=== PATIENT | male | born 1945 | race Caucasian/White ===

== ENCOUNTER → 2016-11-28 | Outpatient (CLI) | payer MEDICARE, BC, OTHER ==
[2016-11-28 18:35] LABS: MEAN CORPUSCULAR HEMOGLOBIN 33.2 pg (27.0-33.0); MEAN CORPUSCULAR HGB CONC 33.3 g/dl (32.0-36.5); MEAN CORPUSCULAR VOLUME 99.8 fl (80.0-96.0); WHITE BLOOD COUNT 4.7 K/mm3 (4.0-10.0)
[2016-11-28 19:37] LABS: ALBUMIN 3.8 GM/DL (3.2-5.2); ALBUMIN/GLOBULIN RATIO 1.31 (1.00-1.93); ALKALINE PHOSPHATASE 58 U/L (45-117); ALT/SGPT 19 U/L (12-78); ANION GAP 6 MEQ/L (8-16); AST/SGOT 17 U/L (15-37); BILIRUBIN,TOTAL 0.6 MG/DL (0.2-1.0); BLOOD UREA NITROGEN 12 MG/DL (7-18); CALCIUM LEVEL 8.1 MG/DL (8.8-10.2); CARBON DIOXIDE LEVEL 27 MEQ/L (21-32); CHLORIDE LEVEL 108 MEQ/L (98-107); CHOLESTEROL LEVEL 171 MG/DL (<200); CREATININE FOR GFR 1.01 MG/DL (0.70-1.30); GLOMERULAR FILTRATION RATE > 60.0 (>42); GLUCOSE, FASTING 93 MG/DL (83-110); POTASSIUM SERUM 4.3 MEQ/L (3.5-5.1); SODIUM LEVEL 141 MEQ/L (136-145); TOTAL PROTEIN 6.7 GM/DL (6.4-8.2); TRIGLYCERIDES LEVEL 46 MG/DL (<150)
== END ==
LOC: M WUC 10:18
PROVIDERS: ATTEND Family Medicine
DX: E78.5 Hyperlipidemia, unspecified (principal)

== ENCOUNTER → 2017-06-08 | Outpatient (REF) | payer MEDICARE, OTHER ==
[2017-06-08 18:00] LABS: ALBUMIN/GLOBULIN RATIO 1.33 (1.00-1.93); ALKALINE PHOSPHATASE 57 U/L (45-117); ALT/SGPT 27 U/L (12-78); ANION GAP 8 MEQ/L (8-16); AST/SGOT 23 U/L (7-37); BILIRUBIN,TOTAL 0.7 MG/DL (0.2-1.0); BLOOD UREA NITROGEN 16 MG/DL (7-18); CALCIUM LEVEL 8.7 MG/DL (8.8-10.2); CARBON DIOXIDE LEVEL 29 MEQ/L (21-32); CHLORIDE LEVEL 103 MEQ/L (98-107); CREATININE FOR GFR 0.97 MG/DL (0.70-1.30); GLOMERULAR FILTRATION RATE > 60.0 (>42); GLUCOSE, FASTING 76 MG/DL (70-100); POTASSIUM SERUM 4.1 MEQ/L (3.5-5.1); SODIUM LEVEL 140 MEQ/L (136-145)
== END ==
LOC: M LABDRAW1 15:07
DX: E78.5 Hyperlipidemia, unspecified (principal)
CPT/HCPCS: 80053

== ENCOUNTER 2018-09-27 11:00 | Emergency (ER) | payer MEDICARE, BC, OTHER ==
[~2018-09-27] VITALS: Ht 165.1 cm; Wt 74.5 kg
--- NOTE | 2018-09-27 11:42 | REP ---
CT Head without contrast HISTORY: Altered mental status COMPARISON: None The patient is status post bilateral frontal parietal cranioplasty. Areas of decreased attenuation are present in the frontal lobes greater on the right than on the left. There is dilatation of the overlying cortical sulci. This represents encephalomalacia. Areas of decreased attenuation are present in the periventricular white matter. This represents small-vessel ischemic disease. There is no intraparenchymal hemorrhage, acute infarct, mass or midline shift. The ventricular system and cortical sulci are dilated consistent with mild volume loss. There is no extra cerebral collection. There is no fracture. The visualized sinuses are clear. IMPRESSION: 1. Bilateral frontal lobe encephalomalacia. 2. Small vessel ischemic disease. 3. Mild volume loss. Electronically Signed by Elgin Turcios MD 09/27/2018 11:34 A
[2018-09-27 11:53] LABS: BASO % 0.2 % (0.0-1.0); EOS % 0.1 % (0.0-3.0); HEMATOCRIT 48.9 % (42.0-52.0); HEMOGLOBIN 16.4 g/dl (13.5-17.5); LYMPH # 0.9 10^3/uL (1.5-4.5); LYMPH % 11.5 % (24.0-44.0); MEAN CORPUSCULAR HEMOGLOBIN 32.3 pg (27.0-33.0); MEAN CORPUSCULAR HGB CONC 33.5 g/dl (32.0-36.5); MEAN CORPUSCULAR VOLUME 96.3 fl (80.0-96.0); MONO # 0.7 10^3/uL (0.0-0.8); NEUTROPHILS # 6.3 10^3/uL (1.8-7.7); NEUTROPHILS % 78.5 % (36.0-66.0); PLATELET COUNT, AUTOMATED 159 10^3/uL (150-450); RED BLOOD COUNT 5.08 10^6/uL (4.30-6.10)
[2018-09-27 12:30] LABS: AMPHETAMINES LEVEL URINE NEGATIVE (NEGATIVE); BARBITURATES URINE NEGATIVE (NEGATIVE); BENZODIAZEPINES URINE NEGATIVE (NEGATIVE); CANNABINOIDS URINE NEGATIVE (NEGATIVE); COCAINE METABOLITE URINE NEGATIVE (NEGATIVE); METHADONE URINE NEGATIVE (NEGATIVE); OPIATES URINE NEGATIVE (NEGATIVE); PHENCYCLIDINE URINE NEGATIVE (NEGATIVE)
[2018-09-27] MEDS ORDERED: NAPROXEN 250 MG TAB PO ONE (12:30)
[2018-09-27 12:31] LABS: ACETAMINOPHEN LEVEL < 2.0 UG/ML (10.0-30.0); SALICYLATE LEVEL < 1.7 MG/DL (5.0-30.0)
[2018-09-27 12:32] LABS: ETHYL ALCOHOL (ETHANOL) < 0.003 % (0.000-0.010)
[2018-09-27 12:35] LABS: ALBUMIN 3.8 GM/DL (3.2-5.2); ALT/SGPT 27 U/L (12-78); BILIRUBIN,DIRECT 0.2 MG/DL (0.0-0.2); BILIRUBIN,TOTAL 0.8 MG/DL (0.2-1.0); BLOOD UREA NITROGEN 13 MG/DL (7-18); CALCIUM LEVEL 8.3 MG/DL (8.8-10.2); CARBON DIOXIDE LEVEL 28 MEQ/L (21-32); CHLORIDE LEVEL 104 MEQ/L (98-107); CPK CREATINE PHOSPHOKINASE 175 U/L (39-308); CREATININE FOR GFR 0.95 MG/DL (0.70-1.30); GLOMERULAR FILTRATION RATE > 60.0 (>42); GLUCOSE, FASTING 98 MG/DL (70-100); MB/CK RELATIVE INDEX 1.83 (< OR =4); SODIUM LEVEL 139 MEQ/L (136-145); TOTAL PROTEIN 7.4 GM/DL (6.4-8.2); TROPONIN I < 0.02 NG/ML (< 0.10)
[2018-09-27 12:52] LABS: OSMOLALITY SERUM 290 MOSM/KG (280-301)
--- NOTE | 2018-09-27 12:57 | REP ---
CT cervical spine without contrast HISTORY: Fall COMPARISON: None There is no acute fracture or subluxation. 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 There is very minimal posterior angulation of the odontoid process. A subchondral cyst is present in the C2 vertebral body. There is no subluxation. A disc bulge is present at the C3-4 level. Disc bulges with associated osteophyte formation are present at the C4-5 through C6-7 levels. There is minimal narrowing of the spinal canal. Uncinate process and/or facet hypertrophy are present at the C3-4 through C7-T1 levels. These findings produce minimal to mild narrowing of the neural foramina. The C4-5 through C7-T1 intervertebral discs are decreased in height consistent with disc degeneration. IMPRESSION: 1. There is no acute fracture or subluxation. 2. 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 There is no subluxation. 3. There is cervical spondylosis at the C3-4 through C7-T1 levels. Electronically Signed by Elgin Turcios MD 09/27/2018 12:48 P
[2018-09-27 13:28] VITALS: BP 139/71
--- NOTE | 2018-09-27 21:09 | ED PDOC ---
Post-Departure Follow-Up dr lei faxed formal areport of david orozco for fu Vinicio Swenson MD September 27, 2018 21:09
--- NOTE | 2018-09-28 11:31 | ECGEPIP ---
Stationary ECG Study [facility] - ED Test Date: 2018-09-27 Pat Name: JOSEPH OLVERA Department: Room: - Gender: M Production Associate: sunni : 1945 Requested By: Holli Gardner Order Number: [id number] Reading MD: Holli Gardner Measurements Intervals [place] Rate: 66 P: 53 DC: 157 QRS: -9 QRSD: 95 T: 92 QT: 372 QTc: 392 Interpretive Statements SINUS RHYTHM WITH OCCASIONAL VENTRICULAR PREMATURE COMPLEXES NONSPECIFIC T-WAVE ABNORMALITY NO PRIOR FOR COMPARISON Electronically Signed On 09-28-2018 11:31:30 EDT by Holli Gardner
== END 2018-09-27 14:03 | disposition home or self-care (01) ==
LOC: M ED 11:00 → EDBD 11:00 → M ED 14:03
DX: S00.03XA Contusion of scalp, initial encounter (principal); S10.83XA Contusion of other specified part of neck, initial encounter; W18.39XA Other fall on same level, initial encounter; Y92.018 Other place in single-family (private) house as the place of occurrence of the external cause
CPT/HCPCS: 36415; 70450; 72125; 80048; 80076; 80307; 82140; 82550; 82553; 83930; 84443; 84484; 85025; 93005; 93041; 94760; 97161; 99285; G0480

== ENCOUNTER → 2020-10-24 | Outpatient (CLI) | payer MEDICARE, BC, OTHER | LOC: M PLARAD 07:58 | PROVIDERS: ATTEND Orthopaedic Surgery | DX: M47.892 Other spondylosis, cervical region (principal) ==

== ENCOUNTER → 2023-01-28 | Outpatient (CLI) | payer MEDICARE, BC, OTHER ==
[~2023-01-28] MED LIST: ISOVUE-370 76% 100ML VIAL As Ordered ONE
== END ==
LOC: M RAD 16:45
PROVIDERS: ATTEND Orthopaedic Surgery
DX: M50.30 Other cervical disc degeneration, unspecified cervical region (principal); M54.2 Cervicalgia
CPT/HCPCS: 70498; Q9967

== ENCOUNTER → 2023-05-07 | Outpatient (CLI) | payer MEDICARE, BC, OTHER | LOC: M RAD 14:24 | PROVIDERS: ATTEND Family Medicine | DX: Z12.2 Encounter for screening for malignant neoplasm of respiratory organs (principal); F17.210 Nicotine dependence, cigarettes, uncomplicated ==

== ENCOUNTER 2023-10-12 16:28 | Inpatient (IN) | payer MEDICARE, BC ==
[~2023-10-12] VITALS: Ht 165.1 cm; Wt 61.8 kg
[2023-10-12 17:37] LABS: HEMATOCRIT 36.5 % (42.0-52.0); HEMOGLOBIN 12.5 g/dl (13.5-17.5); LYMPH # 0.6 10^3/uL (1.5-5.0); MEAN CORPUSCULAR HEMOGLOBIN 30.6 pg (27.0-33.0); MEAN CORPUSCULAR HGB CONC 34.2 g/dl (32.0-36.5); MEAN CORPUSCULAR VOLUME 89.5 fl (80.0-96.0); MONO # 1.7 10^3/uL (0.0-0.8); MONO % 20.1 % (2.0-8.0); NEUTROPHILS # 5.7 10^3/uL (1.5-8.5); NEUTROPHILS % 66.2 % (36.0-66.0); PLATELET COUNT, AUTOMATED 130 10^3/uL (150-450); RED BLOOD COUNT 4.08 10^6/uL (4.30-6.10); WHITE BLOOD COUNT 8.6 10^3/uL (4.0-10.0)
[2023-10-12 17:48] LABS: INR 1.22; PARTIAL THROMBOPLASTIN TIME 24.6 SECONDS (24.8-34.2)
[2023-10-12 18:03] LABS: BLOOD UREA NITROGEN 10 MG/DL (9-23); CARBON DIOXIDE LEVEL 27 MMOL/L (20-31); CHLORIDE LEVEL 101 MMOL/L (98-107); CK-MB VALUE MASS < 1.0 NG/ML (<3.6); CPK CREATINE PHOSPHOKINASE 98 U/L (46-171); CREATININE FOR GFR 0.77 MG/DL (0.70-1.30); GLOMERULAR FILTRATION RATE > 60.0 (>42); GLUCOSE, FASTING 105 MG/DL (74-106); MAGNESIUM LEVEL 1.8 MG/DL (1.8-2.4); MB/CK RELATIVE INDEX 1.02 (< OR =4); POTASSIUM SERUM 3.1 MMOL/L (3.5-5.1); SODIUM LEVEL 136 MMOL/L (136-145)
[2023-10-12 18:05] LABS: THYROID STIMULATING HORMONE 1.264 uIU/ML (0.55-4.78)
[2023-10-12 18:06] LABS: FREE T4 1.27 NG/DL (0.89-1.76)
[2023-10-12] MEDS: ACETAMINOPHEN TAB 650MG DOSE (2X325MG) PO ONE (18:24)
[2023-10-12 18:52] LABS: ERYTHROCYTE SEDIMENTATION RATE 63 mm/hr (0-20)
[2023-10-12 19:12] LABS: CK-MB VALUE MASS < 1.0 NG/ML (<3.6)
[2023-10-12 19:13] LABS: CPK CREATINE PHOSPHOKINASE 101 U/L (46-171); MB/CK RELATIVE INDEX 0.99 (< OR =4)
[2023-10-12 19:19] LABS: PROCALCITONIN 0.09 ng/ml
[2023-10-12] MEDS: POTASSIUM CHLORIDE 10MEQ SR TABLET PO ONE (20:09)
[2023-10-12 20:15] LABS: ALKALINE PHOSPHATASE 78 U/L (46-116); ALT/SGPT 23 U/L (7.0-40); AST/SGOT 15 U/L (<34); BILIRUBIN,DIRECT 0.3 MG/DL (<0.4); BILIRUBIN,TOTAL 0.6 MG/DL (0.3-1.2); TOTAL PROTEIN 6.1 G/DL (5.7-8.2)
[2023-10-12] MEDS ORDERED: ISOVUE-370 76% 100ML VIAL As Ordered ONE (21:07)
[2023-10-13] VITALS (11 sets, daily range): BP systolic 90–113; BP diastolic 54–95; TEMP 97.2–98.8; O2SAT 94–97
[2023-10-13] MEDS: AZITHROMYCIN 250MG TABLET PO ONE (00:31)
[2023-10-13] MEDS: cefTRIAXone SOD 1 GM in D5W MINI-BAG PLUS 50 ML IV ONE (00:31)
[2023-10-13] MEDS ORDERED: ACETAMINOPHEN TAB 650MG DOSE (2X325MG) PO PRN (01:00)
[2023-10-13] MEDS ORDERED: IPRATROPIUM 0.5MG/ALBUTEROL 2.5MG INH SOL UD 3ML (DUONEB) NEB PRN (01:05)
[2023-10-13] MEDS: POTASSIUM CHLORIDE 10MEQ SR TABLET PO ONE (02:01)
[2023-10-13] MEDS: KCL 20MEQ in NS 1000ML 1,000 ML IV SCH (02:02)
[2023-10-13] MEDS: guaiFENesin ER TABLET 600 MG TAB PO SCH (02:02)
[2023-10-13] MEDS ORDERED: HOME MED LIST COMPLETE! XX SCH (02:45)
[2023-10-13] MEDS ORDERED: MIRALAX *UNIT DOSE* 17GM PACKET PO PRN (03:50)
[2023-10-13] MEDS: IPRATROPIUM 0.5MG/ALBUTEROL 2.5MG INH SOL UD 3ML (DUONEB) NEB PRN (03:52)
[2023-10-13] MEDS: DOCUSATE SODIUM 100MG CAPSULE PO SCH (05:04)
[2023-10-13 06:40] LABS: BLOOD UREA NITROGEN 8 MG/DL (9-23); CALCIUM LEVEL 7.8 MG/DL (8.3-10.6); CARBON DIOXIDE LEVEL 26 MMOL/L (20-31); CHLORIDE LEVEL 104 MMOL/L (98-107); CREATININE FOR GFR 0.71 MG/DL (0.70-1.30); GLOMERULAR FILTRATION RATE > 60.0 (>42); GLUCOSE, FASTING 96 MG/DL (74-106); POTASSIUM SERUM 3.5 MMOL/L (3.5-5.1); SODIUM LEVEL 137 MMOL/L (136-145)
[2023-10-13] MEDS: ENOXAPARIN 40MG/0.4ML SYRINGE (J1650 PER 10MG) SC SCH (08:43)
[2023-10-13] MEDS: cefTRIAXone SOD 2 GM in D5W MINI-BAG PLUS 50 ML IV SCH (11:43)
[2023-10-13] MEDS: LACTOBACILLUS ACIDOPHILUS CAP (BACID) PO SCH (11:43)
[2023-10-13] MEDS: NS 500 ML IV ONE (13:44)
[2023-10-13] MEDS: MIDODRINE 5 MG TAB PO ONE (13:44)
[2023-10-13] MEDS: IPRATROPIUM 0.5MG/ALBUTEROL 2.5MG INH SOL UD 3ML (DUONEB) NEB SCH (14:31)
[2023-10-13] MEDS: AZITHROMYCIN 250MG TABLET PO SCH (20:36)
[2023-10-14] MEDS ORDERED: cefTRIAXone SOD 1 GM in D5W MINI-BAG PLUS 50 ML IV SCH
[2023-10-14] MEDS: BENZONATATE 100MG CAPSULE PO PRN (01:56)
[2023-10-14 02:00] VITALS: BP 103/60; TEMP 98.6; O2SAT 97
[2023-10-14 05:37] VITALS: BP 98/54; TEMP 98.2; O2SAT 95
[2023-10-14 06:17] LABS: HEMATOCRIT 30.8 % (42.0-52.0); MEAN CORPUSCULAR HGB CONC 33.4 g/dl (32.0-36.5); MEAN CORPUSCULAR VOLUME 89.8 fl (80.0-96.0); PLATELET COUNT, AUTOMATED 172 10^3/uL (150-450); RED BLOOD COUNT 3.43 10^6/uL (4.30-6.10)
[2023-10-14 06:18] LABS: HEMOGLOBIN 10.3 g/dl (13.5-17.5)
[2023-10-14 06:25] LABS: BLOOD UREA NITROGEN 7 MG/DL (9-23); CALCIUM LEVEL 7.6 MG/DL (8.3-10.6); CARBON DIOXIDE LEVEL 26 MMOL/L (20-31); CHLORIDE LEVEL 107 MMOL/L (98-107); CREATININE FOR GFR 0.69 MG/DL (0.70-1.30); GLOMERULAR FILTRATION RATE > 60.0 (>42); GLUCOSE, FASTING 107 MG/DL (74-106); MAGNESIUM LEVEL 1.8 MG/DL (1.8-2.4); POTASSIUM SERUM 3.3 MMOL/L (3.5-5.1); SODIUM LEVEL 140 MMOL/L (136-145)
[2023-10-14 10:00] VITALS: BP 90/60; TEMP 98.6; O2SAT 95
[2023-10-14] MEDS: MIDODRINE 5 MG TAB PO ONE (10:41)
[2023-10-14 11:30] VITALS: BP 108/62; TEMP 96.7; O2SAT 97
[2023-10-14] MEDS ORDERED: VENTAER INH (12:39)
[2023-10-14] MEDS ORDERED: MUCI1TAB16 PO (12:39)
[2023-10-14] MEDS ORDERED: AZIT-12 PO (12:39)
[2023-10-14] MEDS ORDERED: CEFD300CAP PO (12:39)
[2023-10-14] MEDS ORDERED: BACI1CAP PO (12:39)
[2023-10-14] MEDS ORDERED: SELF1KIT MC (12:41)
[2023-10-14] MEDS ORDERED: MIDO10TA PO (12:41)
[2023-10-14] MEDS: MAG SULF 1GM/100ML (MAG RUN) 1 GM in IV 1 EA IV ONE (12:54)
[2023-10-14] MEDS: POTASSIUM CHLORIDE 10MEQ SR TABLET PO ONE (12:54)
[2023-10-14 14:00] VITALS: BP 92/51; TEMP 97.9; O2SAT 96
[2023-10-15 15:09] LABS: BODY FLUID CULTURE Not indicated. (.); LEGIONELLA ANTIGEN URINE Negative (Negative); ORGANISM ID Not indicated. (.); SPECIMEN SOURCE Urine (.); URINE STREP PNEUMONIAE ANTIGEN Negative (Negative)
== END 2023-10-14 15:44 | disposition home health service (06) | DRG 871 ==
LOC: M ED 16:28 → EDBD 16:28 → M ED INP 10-13 00:56 → M MSPAV 10-13 02:57
PROVIDERS: ADMIT Preventive Medicine Undersea and Hyperbaric Medicine; ATTEND General Practice
DX: A41.9 Sepsis, unspecified organism (principal); J18.9 Pneumonia, unspecified organism; F17.200 Nicotine dependence, unspecified, uncomplicated; E87.6 Hypokalemia; K44.9 Diaphragmatic hernia without obstruction or gangrene; K57.90 Diverticulosis of intestine, part unspecified, without perforation or abscess without bleeding; M50.31 Other cervical disc degeneration, high cervical region; M50.321 Other cervical disc degeneration at C4-C5 level; M50.323 Other cervical disc degeneration at C6-C7 level; M50.33 Other cervical disc degeneration, cervicothoracic region; R26.89 Other abnormalities of gait and mobility; D64.9 Anemia, unspecified

== ENCOUNTER → 2023-11-19 | Outpatient (CLI) | payer MEDICARE, BC ==
[~2023-11-19] MED LIST changes: +AZIT-12 PO; +BACI1CAP PO; +CEFD300CAP PO; -ISOVUE-370 76% 100ML VIAL As Ordered ONE; +MIDO10TA PO; +MUCI1TAB16 PO; +SELF1KIT MC; +VENTAER INH
[2023-11-19 17:11] LABS: BASO % 0.2 % (0.0-1.0); EOS % 0.7 % (0.0-3.0); HEMOGLOBIN 12.5 g/dl (13.5-17.5); LYMPH # 1.4 10^3/uL (1.5-5.0); LYMPH % 25.2 % (24.0-44.0); MEAN CORPUSCULAR HEMOGLOBIN 30.7 pg (27.0-33.0); MEAN CORPUSCULAR HGB CONC 32.9 g/dl (32.0-36.5); MEAN CORPUSCULAR VOLUME 93.4 fl (80.0-96.0); NEUTROPHILS # 3.1 10^3/uL (1.5-8.5); NEUTROPHILS % 54.5 % (36.0-66.0); PLATELET COUNT, AUTOMATED 209 10^3/uL (150-450); RED BLOOD COUNT 4.07 10^6/uL (4.30-6.10); WHITE BLOOD COUNT 5.7 10^3/uL (4.0-10.0)
[2023-11-19 17:38] LABS: BLOOD UREA NITROGEN 13 MG/DL (9-23); CALCIUM LEVEL 8.4 MG/DL (8.3-10.6); CARBON DIOXIDE LEVEL 30 MMOL/L (20-31); CHLORIDE LEVEL 109 MMOL/L (98-107); FERRITIN 224.2 NG/ML (10.5-307.3); GLOMERULAR FILTRATION RATE > 60.0 (>42); GLUCOSE, FASTING 79 MG/DL (74-106); IRON (FE) 50 UG/DL (65-175); PERCENT SATURATION 17.1 % (19.7-50.0); POTASSIUM SERUM 3.5 MMOL/L (3.5-5.1); SODIUM LEVEL 143 MMOL/L (136-145); TOTAL IRON BINDING CAPACITY 293 UG/DL (250-425)
[2023-11-19 17:39] LABS: FOLATE 5.5 NG/ML (>5.4); VITAMIN B12 LEVEL 400 PG/ML (211-911)
== END ==
LOC: M WUC 14:06
PROVIDERS: ATTEND Family Medicine
DX: D64.9 Anemia, unspecified (principal)

== ENCOUNTER 2024-01-24 15:56 | Inpatient (IN) | payer MEDICARE, BC ==
[~2024-01-24] VITALS: Ht 154.9 cm; Wt 60.5 kg
[2024-01-24] MEDS ORDERED: AMOX875T PO (16:21)
[2024-01-24 19:57] LABS: HEMATOCRIT 42.1 % (42.0-52.0); MEAN CORPUSCULAR HEMOGLOBIN 30.6 pg (27.0-33.0); MEAN CORPUSCULAR HGB CONC 33.3 g/dl (32.0-36.5); MEAN CORPUSCULAR VOLUME 92.1 fl (80.0-96.0); PLATELET COUNT, AUTOMATED 163 10^3/uL (150-450); RED BLOOD COUNT 4.57 10^6/uL (4.30-6.10); WHITE BLOOD COUNT 8.4 10^3/uL (4.0-10.0)
[2024-01-24] MEDS: AMPICILLIN SOD/SULBACTAM SOD 3 GM in D5W MINI-BAG PLUS 100 ML IV ONE (20:01)
[2024-01-24] MEDS: dexAMETHasone 20MG/5ML VIAL IV ONE (20:02)
[2024-01-24] MEDS: NS 1,000 ML IV ONE (20:02)
[2024-01-24 20:06] LABS: ERYTHROCYTE SEDIMENTATION RATE 20 mm/hr (0-20)
[2024-01-24] MEDS ORDERED: ISOVUE-370 76% 100ML VIAL As Ordered ONE (20:13)
[2024-01-24 20:38] LABS: ATYPICAL LYMPH 5 % (0-5); LYMPHOCYTES 18 % (16-44); MONOCYTES 12 % (0-5); NEUTROPHILS 65 % (28-66); PLATELET ESTIMATE NORMAL (NORMAL)
[2024-01-24] MEDS ORDERED: HOME MED LIST COMPLETE! XX SCH (22:35)
[2024-01-25] MEDS ORDERED: MORPHINE 4 MG/ML 1ML VIAL IV PRN (01:40)
[2024-01-25] MEDS ORDERED: KETOROLAC 30 MG/ML 1ML VIAL IV PRN (01:40)
[2024-01-25 01:58] VITALS: BP 107/60; TEMP 97.6; O2SAT 96
[2024-01-25] MEDS: NS 1,000 ML IV SCH (02:44)
[2024-01-25] MEDS: AMPICILLIN SOD/SULBACTAM SOD 3 GM in D5W MINI-BAG PLUS 100 ML IV SCH (02:44)
[2024-01-25 04:30] VITALS: BP 102/54; TEMP 97.2; O2SAT 95
== END 2024-01-25 10:20 | disposition home or self-care (01) | DRG 159 ==
LOC: M ED 15:56 → M ED INP 01-25 00:51 → M MS5PR 01-25 01:46
PROVIDERS: ADMIT Student in an Organized Health Care Education/Training Program; ATTEND Internal Medicine
DX: K04.7 Periapical abscess without sinus (principal)

== ENCOUNTER → 2024-03-16 | Outpatient (CLI) | payer MEDICARE, BC ==
[~2024-03-16] MED LIST changes: +AMOX875T PO
[2024-03-16 18:55] LABS: URIC ACID 4.8 MG/DL (3.7-9.2)
[2024-03-16 18:56] LABS: C REACTIVE PROTEIN QUANTITATIV 5.7 MG/DL (<1.0)
[2024-03-16 18:59] LABS: RHEUMATOID FACTOR QUANT 4.1 IU/ML (<14)
== END ==
LOC: M WUC 12:19
PROVIDERS: ATTEND Family Medicine
DX: M25.50 Pain in unspecified joint (principal)

== ENCOUNTER → 2024-04-25 | Outpatient (REF) | payer MEDICARE, OTHER ==
[~2024-04-25] MED LIST changes: -MIDO10TA PO; +MIDO10TA3 PO
== END ==
LOC: M LABWUC 16:26
PROVIDERS: ATTEND Family Medicine
DX: R70.0 Elevated erythrocyte sedimentation rate (principal)

== ENCOUNTER → 2024-06-15 | Outpatient (REF) | payer MEDICARE, OTHER | LOC: M LABWUC 16:47 → M LAB REF 16:47 | PROVIDERS: ATTEND Family Medicine | DX: R70.0 Elevated erythrocyte sedimentation rate (principal) ==

== ENCOUNTER → 2024-07-25 | Outpatient (REF) | payer MEDICARE, OTHER | LOC: M LABWUC 16:47 | PROVIDERS: ATTEND Family Medicine | DX: R70.0 Elevated erythrocyte sedimentation rate (principal) ==

== ENCOUNTER → 2024-09-06 | Outpatient (REF) | payer MEDICARE, OTHER | LOC: M LABWUC 17:15 | PROVIDERS: ATTEND Family Medicine | DX: R70.0 Elevated erythrocyte sedimentation rate (principal) ==

== ENCOUNTER → 2024-11-14 | Outpatient (REF) | payer MEDICARE, BC ==
[~2024-11-14] MED LIST changes: +ACET500T15 PO; +PRED-1142 PO; +PRED5TA PO
[2024-11-14 19:06] LABS: PLATELET COUNT, AUTOMATED 209 10^3/uL (150-450)
[2024-11-14 19:08] LABS: ALT/SGPT 15.0 U/L (7.0-40); AST/SGOT 17.0 U/L (<34); C REACTIVE PROTEIN QUANTITATIV 2.56 MG/DL (<1.0); CALCIUM LEVEL 8.5 MG/DL (8.3-10.6); CARBON DIOXIDE LEVEL 28.0 MMOL/L (20-31); CHLORIDE LEVEL 103.0 MMOL/L (98-107); CREATININE FOR GFR 0.87 MG/DL (0.70-1.30); GLOMERULAR FILTRATION RATE 88.3 (>42); POTASSIUM SERUM 4.2 MMOL/L (3.5-5.1); SODIUM LEVEL 141.0 MMOL/L (136-145)
[2024-11-14 19:17] LABS: ERYTHROCYTE SEDIMENTATION RATE 32 mm/hr (0-20)
[2024-11-14 21:01] LABS: LYMPHOCYTES 15 % (16-44); MONOCYTES 9 % (0-5); MYELOCYTES 1 % (0-0); NEUTROPHILS 74 % (28-66); PLATELET ESTIMATE NORMAL (NORMAL)
[2024-11-20 16:15] LABS: 25-HYDROXY VITAMIN D2 < 8 pg/mL; 25-HYDROXY VITAMIN D3 18 pg/mL; VITAMIN D 1 25 DIHYDROXY 18 pg/mL (18-72)
== END ==
LOC: M LABWUC 17:39
PROVIDERS: ATTEND Internal Medicine Rheumatology
DX: R79.82 Elevated C-reactive protein (CRP) (principal); R70.0 Elevated erythrocyte sedimentation rate; R51.9 Headache, unspecified; Z79.52 Long term (current) use of systemic steroids

== ENCOUNTER → 2024-11-23 | Outpatient (CLI) | payer MEDICARE, BC ==
[~2024-11-23] MED LIST changes: -ACET500T15 PO; -PRED-1142 PO; -PRED5TA PO
== END ==
LOC: M RAD 13:34
PROVIDERS: ATTEND Family Medicine
DX: Z87.891 Personal history of nicotine dependence (principal)

== ENCOUNTER → 2024-12-15 | Outpatient (REF) | payer MEDICARE, OTHER ==
[2024-12-15 17:39] LABS: PLATELET COUNT, AUTOMATED 180 10^3/uL (150-450)
[2024-12-15 17:40] LABS: ALT/SGPT 14.0 U/L (7.0-40); AST/SGOT 16.0 U/L (<34); C REACTIVE PROTEIN QUANTITATIV 1.2 MG/DL (<1.0); CALCIUM LEVEL 8.4 MG/DL (8.3-10.6); CARBON DIOXIDE LEVEL 33.0 MMOL/L (20-31); CHLORIDE LEVEL 103.0 MMOL/L (98-107); CREATININE FOR GFR 0.92 MG/DL (0.70-1.30); GLOMERULAR FILTRATION RATE 85.1 (>42); POTASSIUM SERUM 3.9 MMOL/L (3.5-5.1); SODIUM LEVEL 143.0 MMOL/L (136-145)
[2024-12-15 19:13] LABS: ATYPICAL LYMPH 1 % (0-5); LYMPHOCYTES 6 % (16-44); METAMYELOCYTES 2 % (0-0); MONOCYTES 14 % (0-5); MYELOCYTES 1 % (0-0); NEUTROPHILS 76 % (28-66)
[2024-12-15 19:14] LABS: PLATELET ESTIMATE NORMAL (NORMAL)
[2024-12-15 19:23] LABS: ERYTHROCYTE SEDIMENTATION RATE 19 mm/hr (0-20)
== END ==
LOC: M LABWUC 16:43
PROVIDERS: ATTEND Internal Medicine Rheumatology
DX: R79.82 Elevated C-reactive protein (CRP) (principal); R70.0 Elevated erythrocyte sedimentation rate; R51.9 Headache, unspecified; Z79.52 Long term (current) use of systemic steroids

== ENCOUNTER 2025-01-07 14:38 | Emergency (ER) | payer MEDICARE, OTHER, BC ==
[~2025-01-07] VITALS: Ht 162.6 cm; Wt 70.0 kg
[2025-01-07] MEDS ORDERED: PRED-1142 PO (14:51)
[2025-01-07 16:37] LABS: BASO # 0.0 10^3/uL (0.0-0.2); BASO % 0.2 % (0.0-1.0); EOS # 0.0 10^3/uL (0.0-0.5); EOS % 0.1 % (0.0-3.0); LYMPH # 1.4 10^3/uL (1.5-5.0); LYMPH % 13.2 % (24.0-44.0); MONO # 2.1 10^3/uL (0.0-0.8); MONO % 19.8 % (2.0-8.0); NEUTROPHILS # 6.7 10^3/uL (1.5-8.5); NEUTROPHILS % 62.2 % (36.0-66.0); PLATELET COUNT, AUTOMATED 133 10^3/uL (150-450)
[2025-01-07 16:50] LABS: ALT/SGPT 13.0 U/L (7.0-40); AST/SGOT 16.0 U/L (<34); CALCIUM LEVEL 8.4 MG/DL (8.3-10.6); CARBON DIOXIDE LEVEL 29.0 MMOL/L (20-31); CHLORIDE LEVEL 107.0 MMOL/L (98-107); CREATININE FOR GFR 0.91 MG/DL (0.70-1.30); GLOMERULAR FILTRATION RATE 85.7 (>42); POTASSIUM SERUM 3.6 MMOL/L (3.5-5.1); SODIUM LEVEL 145.0 MMOL/L (136-145)
[2025-01-07 18:26] LABS: C REACTIVE PROTEIN QUANTITATIV 1.8 MG/DL (<1.0)
[2025-01-07 18:33] LABS: ERYTHROCYTE SEDIMENTATION RATE 20 mm/hr (0-20)
[2025-01-07] MEDS: ACETAMINOPHEN *IV* 1,000 MG in IV 1 EA IV ONE (18:44)
[2025-01-07] MEDS: KETOROLAC 30 MG/ML 1 ML VIAL IV ONE (18:44)
[2025-01-07] MEDS: MORPHINE 4 MG/ML 1 ML VIAL IV PRN (21:34)
[2025-01-07] MEDS: ONDANSETRON 4MG 2ML VIAL IV ONE (21:34)
[2025-01-08] MEDS ORDERED: PRED5TA PO (02:05)
[2025-01-08] MEDS ORDERED: ACET500T15 PO (02:05)
[2025-01-08] MEDS ORDERED: HOME MED LIST COMPLETE! XX SCH (02:10)
[2025-01-08 11:34] VITALS: BP 114/53; O2SAT 98
[2025-01-08 11:36] VITALS: TEMP 97.2
== END 2025-01-08 12:25 | disposition left against medical advice (07) ==
LOC: M ED 14:38
DX: M54.50 Low back pain, unspecified (principal); E78.5 Hyperlipidemia, unspecified; Z87.39 Personal history of other diseases of the musculoskeletal system and connective tissue; Z87.81 Personal history of (healed) traumatic fracture; Z79.899 Other long term (current) drug therapy
CPT/HCPCS: 72110; 72131; 80048; 80076; 83690; 85025; 85652; 86140; 93041; 96374; 96375; 99285; J0131; J1885; J2405; J2919

== ENCOUNTER → 2025-02-27 | Outpatient (CLI) | payer MEDICARE, BC ==
[~2025-02-27] MED LIST changes: +ACET500T15 PO; +PRED-1142 PO; +PRED5TA PO
[2025-02-27 14:44] LABS: PLATELET COUNT, AUTOMATED 174 10^3/uL (150-450)
[2025-02-27 14:51] LABS: ERYTHROCYTE SEDIMENTATION RATE 18 mm/hr (0-20)
[2025-02-27 15:05] LABS: ALT/SGPT 17.0 U/L (7.0-40); AST/SGOT 18.0 U/L (<34); C REACTIVE PROTEIN QUANTITATIV 0.96 MG/DL (<1.0); CALCIUM LEVEL 8.5 MG/DL (8.3-10.6); CARBON DIOXIDE LEVEL 32.0 MMOL/L (20-31); CHLORIDE LEVEL 103.0 MMOL/L (98-107); CREATININE FOR GFR 0.94 MG/DL (0.70-1.30); GLOMERULAR FILTRATION RATE 82.5 (>42); POTASSIUM SERUM 3.9 MMOL/L (3.5-5.1); SODIUM LEVEL 143.0 MMOL/L (136-145)
[2025-02-27 15:17] LABS: ATYPICAL LYMPH 9 % (0-5); EOSINOPHILS 1 % (0-3); LYMPHOCYTES 19 % (16-44); MONOCYTES 2 % (0-5); NEUTROPHILS 69 % (28-66)
[2025-02-27 15:18] LABS: PLATELET ESTIMATE NORMAL (NORMAL)
== END ==
LOC: M WUC 11:51
PROVIDERS: ATTEND Internal Medicine Rheumatology
DX: R79.82 Elevated C-reactive protein (CRP) (principal); R70.0 Elevated erythrocyte sedimentation rate; R51.9 Headache, unspecified; Z79.52 Long term (current) use of systemic steroids; Z72.0 Tobacco use

== ENCOUNTER → 2025-03-30 | Outpatient (CLI) | payer MEDICARE, BC | LOC: M EKG 12:57 | PROVIDERS: ATTEND Family Medicine | DX: I48.0 Paroxysmal atrial fibrillation (principal) ==

== ENCOUNTER → 2025-05-07 | Outpatient (CLI) | payer MEDICARE, BC ==
[2025-05-07 18:36] LABS: PLATELET COUNT, AUTOMATED 182 10^3/uL (150-450)
[2025-05-07 18:37] LABS: C REACTIVE PROTEIN QUANTITATIV 0.56 MG/DL (<1.0)
[2025-05-07 18:38] LABS: ALT/SGPT 15.0 U/L (7.0-40); AST/SGOT 18.0 U/L (<34); CALCIUM LEVEL 8.7 MG/DL (8.3-10.6); CARBON DIOXIDE LEVEL 30.0 MMOL/L (20-31); CHLORIDE LEVEL 102.0 MMOL/L (98-107); CREATININE FOR GFR 0.94 MG/DL (0.70-1.30); GLOMERULAR FILTRATION RATE 82.5 (>42); POTASSIUM SERUM 3.7 MMOL/L (3.5-5.1); SODIUM LEVEL 141.0 MMOL/L (136-145)
== END ==
LOC: M WUC 13:13
PROVIDERS: ATTEND Internal Medicine Rheumatology
DX: R79.82 Elevated C-reactive protein (CRP) (principal); R70.0 Elevated erythrocyte sedimentation rate; R51.9 Headache, unspecified; Z79.52 Long term (current) use of systemic steroids; Z72.0 Tobacco use